=== PATIENT | female | born 1985 | race Two or more races ===

== ENCOUNTER 2017-01-06 20:16 | Emergency (ER) | payer SELFPAY ==
[~2017-01-06] VITALS: Ht 170.2 cm; Wt 76.2 kg
[2017-01-06 20:43] VITALS: BP 130/91
--- NOTE | 2017-01-06 20:43 | NUR ---
PT BIBSELF, AMBULATORY TO ER BED 14. PT C/O LL BACK PAIN RADIATING TO LEFT LEG. PT AOX3 RR EVEN AND UNLABORED. NO SOB NOTED. NAD NOTED. NO NVD AT THIS TIME. PT GOWNED AND PLACED ON MONITOR WAITING FOR MD LOPEZ.
--- NOTE | 2017-01-06 20:45 | NUR ---
HERMANN ALEJANDRE AT BEDSIDE FOR EVAL.
[2017-01-06] MEDS ORDERED: HYDROMORPHONE 1 MG/1 ML DISP.SYRIN IM ONE (21:00)
[2017-01-06] MEDS ORDERED: ONDANSETRON 4 MG TAB.RAPDIS SL ONE (21:00)
[2017-01-06] MEDS ORDERED: HYDROMORPHONE INJ 2 MG/ML DISP.SYRIN ONE (21:02)
[2017-01-06] MEDS ORDERED: ONDANSETRON 4 MG TAB.RAPDIS ONE (21:02)
--- NOTE | 2017-01-06 21:19 | NUR ---
Patient discharged to home in stable condition. Written and verbal after care instructions given. Patient verbalizes understanding of instruction. ambulatory with a steady gait. instructed pt not to drive. pt verbalize understanding.
== END 2017-01-06 21:21 | disposition home or self-care (01) ==
LOC: ER 20:19
DX: M54.42 Lumbago with sciatica, left side (principal); Z88.6 Allergy status to analgesic agent
CPT/HCPCS: A4606; J1170; Q0162; Z7610